=== PATIENT | male | born 1970 | race Caucasian/White ===

== ENCOUNTER 2019-03-29 21:08 | Emergency (ER) | payer OTHER ==
[2019-03-29 21:16] VITALS: TEMP 97.8
[2019-03-29] MEDS ORDERED: AMOXIC-POT CLAV 875-125MG 1 EACH TAB PO STA (22:13)
[2019-03-29] MEDS ORDERED: ACET/COD 300 MG/30 MG STARTER PACK 6 TAB BTL PO STA (22:13)
[2019-03-29] MEDS ORDERED: AMOXIC-POT CLAV 875MG STARTER 2 EACH TABLET PO STA (22:13)
[2019-03-29] MEDS ORDERED: Acetaminophen-Codeine 300-30mg TAB PO STA (22:13)
--- NOTE | 2019-03-29 22:14 | ED ---
ENT HPI - General Chief complaint: Dental/Oral Stated complaint: Dental/facial pain Time Seen by Provider: 03/29/19 21:27 Source: patient, RN notes reviewed, old records reviewed Mode of arrival: ambulatory Limitations: no limitations - History of Present Illness Initial comments: This is a 48-year-old male with history of dental disease dental caries and abscess. Patient presented with tooth pain. No significant swelling noted no recent fever or cough or congestion. Symmetric recent sinus disease, maxillary sinus. Otherwise patient has no significant other complaints. No fevers. No difficulties swallowing or eating MD complaint: tooth pain, sore throat -: days(s) Location: tooth # (Right upper tooth repair) Severity: moderate Severity scale (1-10): 6 Quality: aching Consistency: constant Improves with: none, pressure Worsens with: none Context- Dental: history of dental caries Associated Symptoms: gum swelling, toothache - Related Data Previous Rx's Medication Instructions Recorded Amoxic-Pot Clav 875-125Mg 1 tab PO Q12HR #20 tablet 03/29/19 [Augmentin 875-125] Allergies Allergy/AdvReac Type Severity Reaction Status Date / Time No Known Allergies Allergy Verified 03/29/19 21:16 Review of Systems ROS Statement: Those systems with pertinent positive or pertinent negative responses have been documented in the HPI. ROS Other: All systems not noted in ROS Statement are negative. Past Medical History Past Medical History: No Reported History History of Any Multi-Drug Resistant Organisms: None Reported Past Surgical History: No Surgical Hx Reported Past Psychological History: No Psychological Hx Reported Smoking Status: Current every day smoker Past Alcohol Use History: None Reported Past Drug Use History: None Reported General Exam Limitations: no limitations General appearance: alert, in no apparent distress Head exam: Present: atraumatic, normocephalic, normal inspection Eye exam: Present: normal appearance, PERRL, EOMI. Absent: scleral icterus, conjunctival injection, periorbital swelling ENT exam: Present: normal exam, mucous membranes moist, other (Significant dental caries) Neck exam: Present: normal inspection. Absent: tenderness, meningismus, lymphadenopathy Respiratory exam: Present: normal lung sounds bilaterally. Absent: respiratory distress, wheezes, rales, rhonchi, stridor Cardiovascular Exam: Present: regular rate, normal rhythm, normal heart sounds. Absent: systolic murmur, diastolic murmur, rubs, gallop, clicks GI/Abdominal exam: Present: soft, normal bowel sounds. Absent: distended, tenderness, guarding, rebound, rigid Extremities exam: Present: normal inspection, full ROM, normal capillary refill. Absent: tenderness, pedal edema, joint swelling, calf tenderness Back exam: Present: normal inspection Neurological exam: Present: alert, oriented X3, CN II-XII intact Psychiatric exam: Present: normal affect, normal mood Skin exam: Present: warm, dry, intact, normal color. Absent: rash Course Vital Signs 03/29/19 03/29/19 21:13 22:26 Temperature 97.8 F 97.8 F Pulse Rate 82 89 Respiratory 20 18 Rate Blood Pressure 180/93 129/89 O2 Sat by Pulse 99 98 Oximetry - Reevaluation(s) Reevaluation #1: Medical records reviewed Patient has pain control Medical Decision Making - Medical Decision Making 48 male here for evaluation of dental pain and dental and facial pain. Dental caries. Patient treated with antibiotics pain control can be discharged home Disposition Clinical Impression: Dental abscess, Dental caries Disposition: HOME SELF-CARE Condition: Good Instructions (If sedation given, give patient instructions): Dental Abscess (ED), Toothache (ED) Prescriptions: Amoxic-Pot Clav 875-125Mg [Augmentin 875-125] 1 tab PO Q12HR #20 tablet Is patient prescribed a controlled substance at d/c from ED?: No Referrals: Lincoln Yancey DO [Primary Care Provider] - 1-2 days
[2019-03-29 22:31] VITALS: BP 129/89; PULSE 89; RESP 18
== END 2019-03-29 22:30 | disposition home or self-care (01) ==
LOC: EC 21:08
DX: K04.7 Periapical abscess without sinus (principal); K02.9 Dental caries, unspecified; F17.200 Nicotine dependence, unspecified, uncomplicated
CPT/HCPCS: 99283